=== PATIENT | male | born 1985 | race Caucasian/White ===

== ENCOUNTER 2020-09-06 15:26 | Emergency (ER) | payer OTHER ==
[~2020-09-06] VITALS: Ht 177.8 cm; Wt 81.7 kg
[2020-09-06] MEDS ORDERED: NORCO5 PO (20:09)
[2020-09-06 20:20] VITALS: BP 127/77
== END 2020-09-06 20:20 | disposition home or self-care (01) ==
LOC: M.ERS 15:26
DX: S76.812A Strain of other specified muscles, fascia and tendons at thigh level, left thigh, initial encounter (principal); V27.4XXA Motorcycle driver injured in collision with fixed or stationary object in traffic accident, initial encounter; Y93.55 Activity, bike riding; Y92.89 Other specified places as the place of occurrence of the external cause; Y99.8 Other external cause status